=== PATIENT | male | born 1965 | race Caucasian/White ===

== ENCOUNTER → 2019-05-01 | Outpatient (CLI) | payer BC, OTHER ==
--- NOTE | 2019-05-02 08:57 | US ---
EXAMINATION TYPE: US kidneys/renal and bladder DATE OF EXAM: 05/01/2019 COMPARISON: Comparison exam from outside institution is not supplied for correlation. CLINICAL HISTORY: N28.1 Simple renal cyst. Patient had recent CT at another facility and renal cyst w as seen. Recent passage of kidney stone right kidney. EXAM MEASUREMENTS: Right Kidney: 11.5 x 6.6 x 6.5 cm Left Kidney: 12.7 x 5.6 x 5.6 cm Right Kidney: No hydronephrosis or masses seen Left Kidney: two cysts seen in renal sinus, the first measures 2.1 x 2.0 x 1.7 cm, and the second tiffani sures 2.1 x 1.2 x 1.2cm. Bladder: not well distended Bilateral Jets seen: No Cortical medullary differentiation is maintained. Left renal pelvic cysts show imperceptible wall, increased through transmission, are anechoic. IMPRESSION: Suspect parapelvic cysts left kidney.
== END | disposition home or self-care (01) ==
LOC: RADUSWWP 16:33
PROVIDERS: ATTEND Family Medicine
DX: N28.1 Cyst of kidney, acquired (principal)
CPT/HCPCS: 76770

== ENCOUNTER → 2019-05-04 | Outpatient (CLI) | payer BC, OTHER ==
--- NOTE | 2019-05-04 17:24 | MR ---
EXAMINATION TYPE: MR lumbar spine wo con DATE OF EXAM: 05/04/2019 COMPARISON: None HISTORY: Radiculopathy, lumbar region, pain TECHNIQUE: Multiplanar, multisequence images of the lumbar spine were acquired. Lumbar vertebra have normal alignment. There is posterior disc herniation in the midline at L5-S1 and slightly to the left side. There is posterior disc herniation at L2-3 with elevation of the posterio r longitudinal ligament. There is sequestered disc fragment along the posterior aspect of the L2 vert ebral body. There is no significant spinal stenosis at L2-3. There is left side effacement of the the kate sac at L2-3. There is no compression fracture. There is no lumbar paraspinal mass. Lumbar nerve r oots appear normal. I see no focal bone destruction. IMPRESSION: Posterior disc herniations at L2-3 and L5-S1 as above. No significant spinal stenosis. Left side exte nsion of the disc herniations. There is mild neural foraminal impingement due to facet arthropathy an d mild disc space narrowing at L4-5 L5-S1.
== END | disposition home or self-care (01) ==
LOC: RADMRIMAIN 16:26
PROVIDERS: ATTEND Family Medicine
DX: M99.73 Connective tissue and disc stenosis of intervertebral foramina of lumbar region (principal); M51.26 Other intervertebral disc displacement, lumbar region; M51.27 Other intervertebral disc displacement, lumbosacral region; M46.96 Unspecified inflammatory spondylopathy, lumbar region; M46.97 Unspecified inflammatory spondylopathy, lumbosacral region
CPT/HCPCS: 72148